=== PATIENT | male | born 1965 | race Caucasian/White ===

== ENCOUNTER 2022-06-10 13:40 | Emergency (ER) | payer BC ==
[2022-06-10 14:15] VITALS: BP 147/90
== END 2022-06-10 17:49 | disposition home or self-care (01) ==
LOC: ER 13:41
DX: M71.21 Synovial cyst of popliteal space [Baker], right knee (principal); R22.41 Localized swelling, mass and lump, right lower limb
CPT/HCPCS: 93971; 99284